=== PATIENT | female | born 1980 | race Caucasian/White ===

== ENCOUNTER 2018-03-18 06:09 | Inpatient (IN) ==
[2018-03-18] MEDS ORDERED: ANCEF VIAL 1 GRAM IVP ONE (06:34)
[2018-03-18] MEDS ORDERED: ANCEF 1 GRAM IV PREMIX* 1 G/50 ML BAG IV ONE (06:38)
[2018-03-18] MEDS: D5 1/2 NS 1000 ML 1,000 ML IV SCH ×5 (06:45→22:01)
[2018-03-18 06:56] VITALS: BMI 27.3
[2018-03-18] MEDS ORDERED: FENTANYL INJ 250 mcg ONE (07:18)
[2018-03-18] MEDS ORDERED: DILAUDID INJ ONE (07:18)
[2018-03-18] MEDS ORDERED: METHYLENE BLUE 1% INJ ONE (08:52)
[2018-03-18] MEDS ORDERED: D5 1/2 NS 1000 ML 1,000 ML IV ONE (09:47)
[2018-03-18] MEDS ORDERED: PHENERGAN INJ 25 MG IVP PRN (10:07)
[2018-03-18] MEDS ORDERED: BENADRYL INJ 50 MG VIAL IVP PRN ×2 (10:07→10:28)
[2018-03-18] MEDS ORDERED: ZOFRAN INJ 4 MG VIAL IVP PRN ×2 (10:07→10:28)
[2018-03-18] MEDS ORDERED: REGLAN INJ 10 MG VIAL IVP PRN (10:07)
[2018-03-18] MEDS: DILAUDID INJ IVP PRN ×2 (10:10→10:25)
[2018-03-18] MEDS ORDERED: TORADOL 30 MG VIAL IVP PRN (10:28)
[2018-03-18] MEDS ORDERED: ZOFRAN INJ 4 MG VIAL ONE ×2 (10:36→15:21)
[2018-03-18] MEDS: MORPHINE SULFATE PCA 30 MG IVP PRN ×2 (11:00→19:00)
[2018-03-18] MEDS ORDERED: NEOSTIGMINE INJ ONE (15:21)
[2018-03-18] MEDS ORDERED: XYLOCAINE 1 % (PLAIN) ONE (15:21)
[2018-03-18] MEDS ORDERED: ULTANE GAS IN ONE (15:21)
[2018-03-18] MEDS ORDERED: DIPRIVAN VIAL ONE (15:21)
[2018-03-18] MEDS ORDERED: VERSED ONE (15:21)
[2018-03-18] MEDS ORDERED: NORCURON INJ 10 MG VIAL ONE (15:21)
[2018-03-18] MEDS ORDERED: ROBINUL ONE (15:21)
[2018-03-18] MEDS ORDERED: QUELICIN (OR ANECTINE) ONE (15:21)
[2018-03-19] MEDS: D5 1/2 NS 1000 ML 1,000 ML IV SCH ×6 (04:05→21:47)
[2018-03-19 05:22] LABS: BLOOD UREA NITROGEN 4 mg/dL (7-18); CALCIUM 7.6 mg/dL (8.5-10.1); CARBON DIOXIDE 27.8 mmol/L (21-32); CHLORIDE 106 mmol/L (98-107); COR NA(FOR HYPERGLY) 140 mmol/L (136-145); CREATININE 0.63 mg/dL (0.55-1.02); SODIUM 140 mmol/L (136-145); eGFR NON BLACK RACES > 60 (>60)
[2018-03-19 05:23] LABS: BASOPHILS % (AUTO) 0.1 % (0.2-1.0); EOSINOPHILS % (AUTO) 0.2 % (0.9-2.9); LYMPHOCYTES # (AUTO) 1.9 X10^3/uL (1.3-2.9); LYMPHOCYTES % (AUTO) 22.6 % (21.0-51.0); MEAN CORPUSCULAR HEMOGLOBIN 27.2 pg (27.0-34.0); MEAN CORPUSCULAR HGB CONC 33.5 g/dL (33.0-35.0); MEAN CORPUSCULAR VOLUME 81.2 fL (80.0-100.0); MEAN PLATELET VOLUME 8.7 fL (7.4-11.0); MONOCYTES # (AUTO) 1.2 x10^3/uL (0.3-0.8); MONOCYTES % (AUTO) 14.2 % (0.0-13.0); NEUTROPHILS # (AUTO) 5.2 x10^3/uL (2.2-4.8); NEUTROPHILS % (AUTO) 62.9 % (42.0-75.0); PLATELET COUNT 200 X10^3/uL (150.0-450.0); RED BLOOD COUNT 3.57 X10^6/uL (3.5-5.4); WHITE BLOOD COUNT 8.3 X10^3/uL (3.6-10.0)
[2018-03-19 05:37] LABS: HEMOGLOBIN 9.7 g/dL (12.0-16.0)
[2018-03-19] MEDS ORDERED: PERCOCET TAB 5/325 MG PO PRN (07:51)
[2018-03-19] MEDS ORDERED: MYLICON TAB 80 MG CHEW PO PRN (07:53)
[2018-03-19] MEDS: COLACE CAP 100 MG PO SCH ×2 (09:40→21:46)
[2018-03-19] MEDS: MACROBID CAP 100 MG EXT REL PO SCH ×2 (09:40→21:46)
[2018-03-19] MEDS: BACTROBAN CREAM TOP SCH ×2 (13:26→21:46)
[2018-03-19] MEDS: MOTRIN TAB 800 MG PO PRN (16:56)
[2018-03-20] MEDS: D5 1/2 NS 1000 ML 1,000 ML IV SCH (00:20)
[2018-03-20 04:53] VITALS: BP 107/62
[2018-03-20] MEDS: BACTROBAN CREAM TOP SCH (05:09)
[2018-03-20] MEDS ORDERED: FLUVIRIN IM ONE (08:19)
[2018-03-20] MEDS: COLACE CAP 100 MG PO SCH (08:41)
[2018-03-20] MEDS: MACROBID CAP 100 MG EXT REL PO SCH (08:41)
[2018-03-20] MEDS: MOTRIN TAB 800 MG PO PRN (08:46)
[2018-03-20] MEDS ORDERED: ESTRACE PO SCH (09:00)
== END 2018-03-20 09:30 | disposition home or self-care (01) | DRG 742 ==
LOC: MED/SURG 06:09
PROVIDERS: ADMIT Specialist; ATTEND Specialist
DX: Z23 Encounter for immunization; N94.4 Primary dysmenorrhea; N73.6 Female pelvic peritoneal adhesions (postinfective); R10.2 Pelvic and perineal pain; N39.0 Urinary tract infection, site not specified; N92.5 Other specified irregular menstruation; B96.29 Other Escherichia coli [E. coli] as the cause of diseases classified elsewhere
CPT/HCPCS: 36415; 80048; 85025; A4216; A4222; J0330; J0690; J1170; J2250; J2271; J2405; J2704; J2710; J3010; J3490; Q9968; S5010